=== PATIENT | female | born 2000 | race Caucasian/White ===

== ENCOUNTER 2024-11-25 11:25 | Emergency (ER) | payer OTHER, SELFPAY ==
[2024-11-25 11:36] VITALS: BP 121/69; PULSE 101; RESP 16; TEMP 36.8; O2SAT 100
--- NOTE | 2024-11-25 11:57 | ED_ITS ---
HPI - Ear Problem General Chief complaint: Ear Stated complaint: Right Ear Pain Source: patient Mode of arrival: ambulatory Limitations: no limitations History of Present Illness HPI Narrative: 23-year-old female presented for complaint of right ear pain for 2 days. Endorses mild pain to the left ear. Also reports sore throat. Denies shortness of breath, wheezing nausea vomiting fevers chills. MD Complaint: ear pain Related Data Home Medications ?Medication ?Instructions ?Recorded ?Confirmed ?Last Taken ?Type sertraline 25 mg tablet mg 11/25/24 Unknown History Allergies Allergy/AdvReac Type Severity Reaction Status Date / Time No Known Allergies Allergy Verified 11/25/24 11:35 Review of Systems Review of Systems: CONSTITUTIONAL: Denies malaise, chills, or fever. EYES: Denies visual changes, redness, or discharge. ENT: Denies rhinorrhea, congestion, sinus pain. Reports ear pain and sore throat CARDIOVASCULAR: Denies chest pain, palpitations, or edema. RESPIRATORY: Denies cough or dyspnea. GASTROINTESTINAL: Denies abdominal pain, nausea, vomiting, diarrhea MUSCULOSKELETAL: Denies myalgia. NEUROLOGIC: Denies headache. 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 Gender identity (if verbalized by the patient): Female Sexual Orientation (if Verbalized by the Patient): Bisexual Spiritual care concerns: No Agree to blood products: No Comments At time of signature, agree with nursing past medical, surgical, social and family history. There is no relevant family history pertinent to the presenting complaint Exam Narrative: GENERAL: Well-appearing EYES: PERRLA, conjunctivae clear ENT: Nares clear. Mucous membranes moist. TM mildly erythematous with dull light reflex and clear effusion bilaterally; no tragal tenderness. Oropharynx not erythematous without lesions. Tonsils not enlarged and without exudate, no drooling, no hoarseness, no trismus, uvula midline. NECK: Supple. No lymphadenopathy CHEST: Clear to auscultation, breath sounds equal. HEART: Regular rate and rhythm. SKIN: Warm, dry NEURO: Alert and oriented x3. PSYCH: Normal mood and affect Course Course Emergency Course: Patient is aware of diagnosis, understands and agrees to treatment plan. Anticipatory guidance given. Patient agrees to follow-up as directed and is aware of reasons to seek care at the emergency department. Portions of this record may have been created with voice recognition software Level of Care: Express Care Visit Vital Signs Vital signs: Vital Signs Temperature 98.2 F 11/25/24 11:36 Pulse Rate 101 H 11/25/24 11:36 Respiratory Rate 16 11/25/24 11:36 Blood Pressure 121/69 11/25/24 11:36 Pulse Oximetry 100 11/25/24 11:36 Oxygen Delivery Room Air 11/25/24 11:36 Temperature 98.2 F 11/25/24 11:36 Pulse Rate 101 H 11/25/24 11:36 Respiratory Rate 16 11/25/24 11:36 Blood Pressure 121/69 11/25/24 11:36 Pulse Oximetry 100 11/25/24 11:36 Oxygen Delivery Room Air 11/25/24 11:36 Reviewed Medical Decision Making MDM Narrative Medical decision making narrative: Neg Strep results reviewed with patient. Advised supportive measures for serous otitis, and if no improvement she can start abx as she has no pcp to f/u. and signs/symptoms to go to the ER. Patient is appropriate for outpatient treatment and follow-up. Differential Diagnosis Differential Diagnosis: Coronavirus, strep pharyngitis, allergic rhinitis, upper respiratory tract infection, sinusitis, rhinosinusitis, nasopharyngitis, viral pharyngitis, otitis media, otitis externa, eustachian tube dysfunction, foreign body, cerumen impaction. Vital Signs Vital Signs: Vital Signs Temperature 98.2 F 11/25/24 11:36 Pulse Rate 101 H 11/25/24 11:36 Respiratory Rate 16 11/25/24 11:36 Blood Pressure 121/69 11/25/24 11:36 Pulse Oximetry 100 01/08/25 11:36 Oxygen Delivery Room Air 11/25/24 11:36 Temperature 98.2 F 11/25/24 11:36 Pulse Rate 101 H 11/25/24 11:36 Respiratory Rate 16 11/25/24 11:36 Blood Pressure 121/69 11/25/24 11:36 Pulse Oximetry 100 11/25/24 11:36 Oxygen Delivery Room Air 11/25/24 11:36 Discharge Plan Discharge Clinical Impression: Acute serous otitis media Patient Disposition: Home, Self-Care Condition: Stable Instructions: Antibiotic Form, Fluid In The Ear (Serous Otitis Media) (ED) Additional Instructions: Rapid strep swab was negative today You will be notified in a few days if the culture comes back positive for strep, and appropriate antibiotics will be called in at that time. if symptoms are due to a viral illness, it is not treated with antibiotics. Viral symptoms can be present for up to 10-14 days. Recommend Flonase spray and Zyrtec for sinus congestion Cough syrup may cause drowsiness; avoid driving or take it at night time. Tylenol every 8 hours as needed for pain/fever Soft foods, cool liquids, warm tea. Gargle with warm saltwater twice a day. Chloraseptic spray and throat lozenges. Rest and stay hydrated. If no improvement with the above measures in 5-7 days you can start the antibiotic --Follow up with your PCP --Go to the ER immediately if you cannot swallow your saliva, trouble breathing/wheezing, throat swelling, pain is persistent and severe Patient Language: Persian Prescriptions: New amoxicillin-pot clavulanate 875-125 mg tablet 1 tablet PO Q12H 7 Days Qty: 14 0RF No Action sertraline 25 mg tablet norethindrone-e.estradiol-iron [[place] 24 Fe] 1 mg-20 mcg (24)/75 mg (4) tablet 1 tablet PO DAILY Qty: 84 3RF Follow-up/Referrals: PHYSICIAN,SOUND ENGINEERING TECHNICIAN [Primary Care Provider] -
[2024-11-25 12:15] LABS: EDSTREPNEGPOS1 Negative (Negative)
== END 2024-11-25 12:21 | disposition home or self-care (01) ==
PROVIDERS: Emergency Provider Nurse Practitioner Family
DX: H65.00 Acute serous otitis media, unspecified ear (principal)
CPT/HCPCS: 87081; 87880; 99213; G0463